=== PATIENT | female | born 1995 | race African-American/Black ===

== ENCOUNTER 2017-01-12 22:32 | Emergency (ER) | payer SELFPAY ==
[~2017-01-12] VITALS: Ht 165.1 cm; Wt 92.4 kg
[2017-01-13 01:42] VITALS: BP 108/73
== END 2017-01-13 01:43 | disposition home or self-care (01) ==
LOC: EXP 22:32 → EME 22:32 → EXP 01-13 01:43
DX: J02.9 Acute pharyngitis, unspecified (principal); J35.1 Hypertrophy of tonsils
CPT/HCPCS: 87651 90; 99281; 99283; J1100